=== PATIENT | female | born 1980 | race Hispanic/Latino ===

== ENCOUNTER 2018-07-11 17:10 | Emergency (ER) | payer MEDICAID ==
[2018-07-11] MEDS ORDERED: IPRATROPIUM/ALBUTEROL SULFATE 3 ML SOLUTION IH ONE (18:50)
[2018-07-11] MEDS ORDERED: GUAIFENESIN-DM 200/20 MG 10 ML ONE (18:57)
[2018-07-11] MEDS ORDERED: BENZONATATE 100 MG CAPSULE PO ONE (18:57)
[2018-07-11] MEDS ORDERED: DEXAMETHASONE SOD PHOSPHATE 10MG/ML 1ML VIAL ONE (18:57)
== END 2018-07-11 19:40 | disposition home or self-care (01) ==
LOC: EDH 17:10
DX: J20.9 Acute bronchitis, unspecified (principal); Z90.710 Acquired absence of both cervix and uterus
CPT/HCPCS: 71046; 94640; 96372; 99283; J1100

== ENCOUNTER 2018-11-08 16:23 | Emergency (ER) | payer MEDICAID | END 2018-11-08 17:30 | disposition home or self-care (01) | LOC: EDH 16:23 | DX: M54.12 Radiculopathy, cervical region (principal); Z90.49 Acquired absence of other specified parts of digestive tract; Z90.710 Acquired absence of both cervix and uterus | CPT/HCPCS: 72040 ==

== ENCOUNTER 2023-08-01 13:35 | Emergency (ER) | payer MEDICAID ==
[~2023-08-01] VITALS: Ht 167.6 cm; Wt 99.8 kg
[2023-08-01 13:41] VITALS: BP 149/99
[2023-08-01 14:57] LABS: RAPID GROUP A STREP positive (NEGATIVE); SARS-CoV-2, RNA, NAAT NEGATIVE SARS CoV-2 (NEGATIVE)
[2023-08-01 15:05] LABS: INFLUENZA TYPE A Negative For Type A (NEGATIVE); INFLUENZA TYPE B Negative For Type B (NEGATIVE)
[2023-08-01] MEDS ORDERED: PENI500T2 PO (19:06)
[2023-08-01] MEDS ORDERED: ONDA4TAB10 PO (19:06)
[2023-08-01 19:10] VITALS: TEMP 102
[2023-08-01] MEDS: PENICILLIN V POTASSIUM 500 MG TABLET PO ONE (19:10)
[2023-08-01] MEDS: DEXAMETHASONE SOD PHOSPHATE 4 MG/ML 1ML VIAL IM ONE (19:10)
[2023-08-01] MEDS: ACETAMINOPHEN 500 MG TABLET PO ONE (19:10)
[2023-08-01] MEDS: ONDANSETRON ODT 4MG TAB SL ONE (19:10)
[2023-08-01] MEDS: KETOROLAC 30MG VIAL (30MG/ML) IM ONE (19:11)
[2023-08-01 20:19] VITALS: PULSE 97; RESP 18; O2SAT 98
== END 2023-08-01 20:25 | disposition home or self-care (01) ==
LOC: EDH 13:35
DX: J02.9 Acute pharyngitis, unspecified (principal); R53.83 Other fatigue; Z20.822 Contact with and (suspected) exposure to COVID-19; Z90.710 Acquired absence of both cervix and uterus; Z98.890 Other specified postprocedural states
CPT/HCPCS: 99285; 87635; 87880; 87804 ×2; 96372 ×2; J1100; J1885

== ENCOUNTER 2023-08-05 18:49 | Emergency (ER) | payer MEDICAID ==
[~2023-08-05] VITALS: Ht 167.6 cm; Wt 99.8 kg
[~2023-08-05 18:49] MED LIST: ONDA4TAB10 PO; PENI500T2 PO
[2023-08-05] MEDS: DEXAMETHASONE SOD PHOSPHATE 4 MG/ML 1ML VIAL IVP STA (21:39)
[2023-08-05] MEDS: CEFTRIAXONE 2GM VIAL IVPB ONE (21:39)
[2023-08-05] MEDS: 0.9%NACL 1000ML 1,000 ML IV ONE (21:39)
[2023-08-05] MEDS: ONDANSETRON 4MG INJ IVP ONE (21:39)
[2023-08-05] MEDS: KETOROLAC 30MG VIAL (30MG/ML) IVP ONE (21:40)
[2023-08-05 22:15] LABS: INFLUENZA TYPE A Negative For Type A (NEGATIVE); INFLUENZA TYPE B Negative For Type B (NEGATIVE)
[2023-08-05 22:29] LABS: COVID19 (SARS ANTIGEN RAPID) PRESUMPTIVE NEGATIVE (NEGATIVE)
[2023-08-05] MEDS ORDERED: METH4TAB3 PO (22:51)
[2023-08-05] MEDS ORDERED: AMOX1TAB16 PO (22:51)
[2023-08-05 23:32] VITALS: BP 126/62; PULSE 98; RESP 18; O2SAT 98
== END 2023-08-05 23:50 | disposition home or self-care (01) ==
LOC: EDH 18:49
DX: J02.0 Streptococcal pharyngitis (principal); R50.9 Fever, unspecified; R11.2 Nausea with vomiting, unspecified; Z90.710 Acquired absence of both cervix and uterus; Z20.822 Contact with and (suspected) exposure to COVID-19
CPT/HCPCS: 99284; 96365; 96375; 96366; 87426; 87880; 87804 ×2; J1100; J7030; J0696; J2405; J1885